=== PATIENT | male | born 1980 | race Caucasian/White ===

== ENCOUNTER 2017-07-27 09:15 | Emergency (ER) | payer OTHER ==
[~2017-07-27] VITALS: Ht 172.7 cm; Wt 110.9 kg
[~2017-07-27 09:15] MED LIST: NOHOMEMEDS
[2017-07-27] MEDS ORDERED: PREDNISONE20 MG PO (11:00)
[2017-07-27] MEDS ORDERED: ZITHROMAX Z-PA250 MG PO (11:00)
[2017-07-27] MEDS ORDERED: VENTOLIN HFA18 GM IH (11:00)
[2017-07-27 11:06] VITALS: BP 132/71
== END 2017-07-27 11:09 | disposition home or self-care (01) ==
LOC: EME 09:15
DX: J20.9 Acute bronchitis, unspecified (principal); F17.200 Nicotine dependence, unspecified, uncomplicated
CPT/HCPCS: 71046; 94640; 99281; 99283

== ENCOUNTER 2017-08-31 19:47 | Emergency (ER) | payer OTHER ==
[~2017-08-31] VITALS: Ht 172.7 cm; Wt 104.2 kg
[~2017-08-31 19:47] MED LIST changes: +PREDNISONE20 MG PO; +VENTOLIN HFA18 GM IH; +ZITHROMAX Z-PA250 MG PO
[2017-08-31 20:29] LABS: HEMATOCRIT 49.4 % (38.0-50.0); HEMOGLOBIN 16.6 G/DL (12.5-16.6); MCH 29.2 PG (29.0-34.0); MCHC 33.6 G/DL (30.0-36.0); PLATELET COUNT 350 K/uL (156-360); RBC DIS.WIDTH-CV 15.9 % (11.8-14.6); RBC DIS.WIDTH-SD 50.4 % (39-53); RED BLOOD COUNT 5.68 M/uL (4.00-5.50); WHITE BLOOD COUNT 15.6 K/uL (4.1-10.2)
[2017-08-31 20:38] LABS: APPEARANCE SL.HAZY ((CLEAR)); BILIRUBIN SMALL; BLOOD NEGATIVE; COLOR AMBER ((YELLOW)); GLUCOSE (STRIP) NEGATIVE; KETONES 80; LEUKOCYTES NEGATIVE; NITRITE NEGATIVE; PROTEIN (STRIP) 100; SPECIFIC GRAVITY 1.035 (1.000-1.030)
[2017-08-31 20:41] LABS: CHLORIDE 101 mEq/L (99-109); POTASSIUM 4.4 mEq/L (3.7-5.4); SODIUM 138 mEq/L (136-147)
[2017-08-31 20:43] LABS: GLUCOSE 92 mg/dL (70-99); TOTAL PROTEIN 8.9 g/dL (6.4-8.3)
[2017-08-31 20:45] LABS: TOTAL BILIRUBIN 0.9 mg/dL (0.0-1.0)
[2017-08-31 20:46] LABS: ALKALINE PHOSPHATASE 95 IU/L (3-129); CREATININE 1.3 mg/dL (0.6-1.3); GFR ESTIMATE (CALCULATED) > 59 mL/min/ (58.99-99999)
[2017-08-31 20:48] LABS: AST (GOT) 25 IU/L (2-34); UREA NITROGEN (BUN) 17 mg/dL (9-23)
[2017-08-31 20:48] LABS: BACTERIA RARE /HPF; CALCIUM OXALATE CRYSTALS 3+ /HPF; EPITHELIAL CELLS RARE /HPF; MUCUS 4+ /LPF; UCUL ADDED? NO; WHITE BLOOD CELLS 0-5 /HPF (0-5)
[2017-08-31 20:49] LABS: ALT (GPT) 24 IU/L (3-49)
[2017-08-31 21:51] LABS: LIPASE 245 U/L (1.0-51.0)
[2017-09-01] MEDS ORDERED: ZOFRAN4 MG PO (01:51)
[2017-09-01 02:22] VITALS: BP 154/87
== END 2017-09-01 02:54 | disposition home or self-care (01) ==
LOC: EME 19:47
DX: R19.7 Diarrhea, unspecified (principal); R10.9 Unspecified abdominal pain; F12.90 Cannabis use, unspecified, uncomplicated; I10 Essential (primary) hypertension; K21.9 Gastro-esophageal reflux disease without esophagitis; J45.909 Unspecified asthma, uncomplicated; R56.9 Unspecified convulsions; F17.200 Nicotine dependence, unspecified, uncomplicated
CPT/HCPCS: 74177; 80053; 81003; 83690; 85027; J7030

== ENCOUNTER 2017-09-21 00:25 | Emergency (ER) | payer OTHER ==
[~2017-09-21] VITALS: Ht 172.7 cm; Wt 105.6 kg
[~2017-09-21 00:25] MED LIST changes: +ZOFRAN4 MG PO
[2017-09-21] MEDS ORDERED: ATARAX,VISTARIL50 MG PO (01:16)
[2017-09-21] MEDS ORDERED: MEDROL DOSEPAK4 MG PO (01:16)
[2017-09-21] MEDS ORDERED: TRIAMCINOLONE A15 GM TP (01:16)
[2017-09-21 01:42] VITALS: BP 126/90
== END 2017-09-21 01:44 | disposition home or self-care (01) ==
LOC: EME 00:25
DX: L23.9 Allergic contact dermatitis, unspecified cause (principal); I10 Essential (primary) hypertension; K21.9 Gastro-esophageal reflux disease without esophagitis; J45.909 Unspecified asthma, uncomplicated; F17.200 Nicotine dependence, unspecified, uncomplicated; Z86.69 Personal history of other diseases of the nervous system and sense organs
CPT/HCPCS: J7512

== ENCOUNTER 2017-09-25 21:49 | Emergency (ER) | payer OTHER ==
[~2017-09-25] VITALS: Ht 172.7 cm; Wt 102.0 kg
[~2017-09-25 21:49] MED LIST changes: +ATARAX,VISTARIL50 MG PO; +MEDROL DOSEPAK4 MG PO; +TRIAMCINOLONE A15 GM TP
[2017-09-26] VITALS: BP 158/95
== END 2017-09-26 | disposition home or self-care (01) ==
LOC: RME 21:49 → EME 21:49 → RME 09-26
DX: S61.233A Puncture wound without foreign body of left middle finger without damage to nail, initial encounter (principal); W45.0XXA Nail entering through skin, initial encounter; Y93.H3 Activity, building and construction; Z23 Encounter for immunization; I10 Essential (primary) hypertension; J45.909 Unspecified asthma, uncomplicated; F17.200 Nicotine dependence, unspecified, uncomplicated
CPT/HCPCS: 73130; 99281; 99284